=== PATIENT | female | born 1945 ===

== ENCOUNTER 2018-01-09 12:27 | Outpatient (REF) | payer MEDICARE, SELFPAY ==
[2018-01-09 21:10] LABS: HCT 41.8 % (36.0-46.0); HGB 14.5 g/dL (12.0-15.5); Mean Corp. HGB Concentration 34.7 g/dL (32.0-36.0); Mean Corpuscular Hemoglobin 32.8 pg (27.0-33.0); Mean Corpuscular Volume 94.6 fL (80-95); Mean Platelet Volume 11.9 fL (8.0-11.0); Platelet Count 230 x1000/uL (130-400); RBC 4.42 m/cumm (4.00-5.20); RBC Distribution Width 12.5 % (11.7-14.6)
[2018-01-09 21:39] LABS: ALT 21 U/L (12-78); AST 14 U/L (15-37); Albumin 3.9 g/dL (3.4-5.0); Alkaline Phosphatase 87 U/L (46-116); Anion Gap 11.3 mmol/L (3-11); BUN 14 mg/dL (7-18); Bilirubin, Total 0.5 mg/dL (0.2-1.0); CO2 26.7 mmol/L (21.0-32.0); CREATININE 0.86 mg/dL (0.55-1.02); Chloride 103 mmol/L (98-107); Glucose 86 mg/dL (70-100); Magnesium 2.3 mg/dL (1.8-2.4); Potassium 4.1 mmol/L (3.5-5.1); Sodium 141 mmol/L (136-145); TSH (W/Ref FT4) 1.91 uIU/mL (0.358-3.74); Total Protein 7.2 g/dL (6.4-8.2)
[2018-01-11 10:15] LABS: Hepatitis C Ab w Rflx HCV PCR Negative (NEGAT)
[2018-01-11 10:22] LABS: HBs Antibody, Quant <3.1 mIU/mL; Hepatitis B Surface Ab Negative; Hepatitis B Surface Ag Negative (NEGAT)
== END 2018-01-09 12:28 ==
LOC: NCHCN 12:27
PROVIDERS: PCP Family Medicine; Visit Provider Family Medicine
DX: R41.3 Other amnesia (principal); K76.0 Fatty (change of) liver, not elsewhere classified; R00.2 Palpitations; Z11.59 Encounter for screening for other viral diseases
CPT/HCPCS: 80053; 85027; 86706; 86803; 87340; 83735; 84443

== ENCOUNTER 2018-04-09 17:48 | Outpatient (REF) | payer MEDICARE, SELFPAY ==
[2018-04-09 21:29] LABS: ESR 15 MM/HR (0-30)
== END 2018-04-09 18:08 ==
LOC: NCHCN 17:48
PROVIDERS: PCP Family Medicine; Visit Provider Family Medicine
DX: R51 Headache (principal)
CPT/HCPCS: 85652

== ENCOUNTER 2020-04-22 09:55 | Outpatient (REF) | payer MEDICARE, SELFPAY ==
[2020-04-22 21:31] LABS: Abs Immature Grans 0.02 10^3/uL (0.0-0.06); Absolute Basophil Count 0.03 10^3/uL (0.0-0.2); Absolute Eosinophil Count 0.19 10^3/uL (0.0-0.7); Absolute Lymphocyte Count 1.97 10^3/uL (1.2-3.4); Absolute Monocyte Count 0.67 10^3/uL (0.1-0.8); Basophils % 0.5; Eosinophils % 3.1; HCT 40.3 % (36.0-46.0); HGB 13.7 g/dL (11.2-15.7); Immature Grans % 0.3; Lymphocytes % 32.4; MCV 97.1 fL (80-95); Neutrophils % 52.7; Nucleated RBC 0 %; Platelet Count 227 10^3/uL (130-400); RBC 4.15 10^6/uL (3.93-5.22); RDW 11.8 % (11.7-14.6); RDW-SD 41.9 fL; WBC 6.08 10^3/uL (4.4-10.8)
[2020-04-22 21:53] LABS: ALT 21 U/L (14-59); AST 18 U/L (15-37); Albumin 3.7 g/dL (3.4-5.0); Alkaline Phosphatase 75 U/L (46-116); Anion Gap 6.9 mmol/L (3-11); BUN 13 mg/dL (7-18); Bilirubin, Total 0.5 mg/dL (0.2-1.0); CO2 29.1 mmol/L (21.0-32.0); CREATININE 0.77 mg/dL (0.55-1.02); Calcium 8.9 mg/dL (8.5-10.1); Chloride 101 mmol/L (98-107); Glucose 89 mg/dL (74-106); Lipase 152 U/L (73-393); Potassium 4.1 mmol/L (3.5-5.1); Sodium 137 mmol/L (136-145); TSH (W/Ref FT4) 2.08 uIU/mL (0.36-3.74)
[2020-05-11 15:21] LABS: Folate >20.0 mcg/L (>=4.0); Vitamin B12 459 ng/L (180-914)
== END 2020-04-22 10:15 ==
LOC: NCHCN 09:55
PROVIDERS: PCP Family Medicine; Visit Provider Family Medicine
DX: R10.11 Right upper quadrant pain (principal); M54.5 Low back pain; R53.83 Other fatigue; D75.89 Other specified diseases of blood and blood-forming organs
CPT/HCPCS: 80053; 83690; 82607; 82746; 84443; 85025

== ENCOUNTER 2022-09-22 21:43 | Outpatient (REF) | payer MEDICARE, SELFPAY ==
[2022-09-22 21:54] LABS: Abs Immature Grans 0.03 10^3/uL (0.0-0.06); Absolute Basophil Count 0.03 10^3/uL (0.0-0.2); Absolute Eosinophil Count 0.14 10^3/uL (0.0-0.7); Absolute Lymphocyte Count 2.22 10^3/uL (1.2-3.4); Absolute Monocyte Count 0.73 10^3/uL (0.1-0.8); Basophils % 0.4; Eosinophils % 1.9; HCT 39.1 % (36.0-46.0); HGB 13.7 g/dL (11.2-15.7); Immature Grans % 0.4; Lymphocytes % 30.6; MCH 33.3 pg (27.0-33.0); MCV 95 fL (80-95); MPV 12.7 fL (8.0-11.0); Monocytes % 10.1; Neutrophils % 56.6; Platelet Count 230 10^3/uL (130-400); RBC 4.12 10^6/uL (3.93-5.22); RDW 11.8 % (11.7-14.6); RDW-SD 41.1 fL; WBC 7.25 10^3/uL (4.4-10.8)
[2022-09-22 22:05] LABS: Bilirubin Negative (Negative); Blood Negative (Negative); Clarity Clear (Clear); Glucose Negative (Negative); Ketones Negative (Negative); Leukocyte Esterase Small (Negative); Nitrite Negative (Negative); Specific Gravity 1.025 (1.005-1.025); Urobilinogen 0.2 mg/dL (Up to 0.2); pH 6.5 (5-8)
[2022-09-22 22:11] LABS: Bacteria Rare HPF (Negative); C & S Indicated? Yes; Casts Negative LPF (Negative); Crystals Negative HPF (Negative); Epithelial Cells Rare HPF (Negative); Mucus Negative (Negative); RBC Negative HPF (0-2)
[2022-09-22 22:12] LABS: ALT 22 U/L (14-59); AST 18 U/L (15-37); Albumin 3.7 g/dL (3.4-5.0); Alkaline Phosphatase 89 U/L (46-116); Anion Gap 6.8 mmol/L (3-11); BUN 22 mg/dL (7-18); Bilirubin, Total 0.4 mg/dL (0.2-1.0); CO2 27.2 mmol/L (21.0-32.0); CREATININE 1.1 mg/dL (0.55-1.02); Calcium 8.7 mg/dL (8.5-10.1); Chloride 102 mmol/L (98-107); Estimated GFR 52.08 (mL/min/1.73m2); Glucose 107 mg/dL (74-106); Potassium 4.3 mmol/L (3.5-5.1); Sodium 136 mmol/L (136-145); Total Protein 7.7 g/dL (6.4-8.2)
== END 2022-09-22 21:44 | disposition home or self-care (01) ==
LOC: NCHCN 21:43
PROVIDERS: PCP Family Medicine; Visit Provider Internal Medicine
DX: R53.83 Other fatigue (principal); R42 Dizziness and giddiness; R82.998 Other abnormal findings in urine
CPT/HCPCS: 80053; 81003; 81015; 84443; 85025; 87086

== ENCOUNTER 2023-02-28 13:47 | Outpatient (REF) | payer MEDICARE, SELFPAY ==
[2023-02-28 17:23] LABS: Anion Gap 5.1 mmol/L (3-11); BUN 15 mg/dL (7-18); CO2 30.9 mmol/L (21.0-32.0); Calcium 9.9 mg/dL (8.5-10.1); Chloride 101 mmol/L (98-107); Estimated GFR 58.02 (mL/min/1.73m2); Glucose 113 mg/dL (74-106); Potassium 4.3 mmol/L (3.5-5.1); Sodium 137 mmol/L (136-145)
[2023-03-01 13:05] LABS: ALT 19 U/L (14-59); AST 17 U/L (15-37); Albumin 3.7 g/dL (3.4-5.0); Alkaline Phosphatase 95 U/L (46-116); Total Protein 7.4 g/dL (6.4-8.2)
[2023-03-01 13:35] LABS: Vitamin D 25 Total 57.3 ng/mL (30-100)
== END 2023-02-28 13:48 | disposition home or self-care (01) ==
LOC: NCHCN 13:47
PROVIDERS: PCP Family Medicine; Visit Provider Family Medicine
DX: N18.32 Chronic kidney disease, stage 3b (principal); R94.4 Abnormal results of kidney function studies; C20 Malignant neoplasm of rectum; R73.09 Other abnormal glucose
CPT/HCPCS: 80048; 82306; 82040; 84075; 84155; 84450; 84460

== ENCOUNTER 2023-09-13 15:25 | Outpatient (REF) | payer MEDICARE, SELFPAY ==
[2023-09-13 14:44] LABS: Abs Immature Grans 0.01 10^3/uL (0.0-0.06); Absolute Basophil Count 0.04 10^3/uL (0.0-0.2); Absolute Eosinophil Count 0.13 10^3/uL (0.0-0.7); Absolute Lymphocyte Count 1.59 10^3/uL (1.2-3.4); Absolute Monocyte Count 0.57 10^3/uL (0.1-0.8); Absolute Neutrophil Count 2.95 10^3/uL (1.2-6.7); Basophils % 0.8; Eosinophils % 2.5; HCT 38.2 % (36.0-46.0); HGB 13.5 g/dL (11.2-15.7); Immature Grans % 0.2; Lymphocytes % 30.1; MCH 33.8 pg (27.0-33.0); MCHC 35.3 % (32.0-36.0); MCV 96 fL (80-95); MPV 11.5 fL (8.0-11.0); Monocytes % 10.8; Neutrophils % 55.6; Platelet Count 236 10^3/uL (130-400); RDW 11.8 % (11.7-14.6); RDW-SD 40.9 fL; WBC 5.29 10^3/uL (4.4-10.8)
[2023-09-13 15:03] LABS: ALT 24 U/L (14-59); AST 19 U/L (15-37); Albumin 3.6 g/dL (3.4-5.0); Alkaline Phosphatase 73 U/L (46-116); Anion Gap 10.3 mmol/L (3-11); BUN 14 mg/dL (7-18); Bilirubin, Total 0.4 mg/dL (0.2-1.0); CO2 26.7 mmol/L (21.0-32.0); CREATININE 0.7 mg/dL (0.55-1.02); Calcium 9.2 mg/dL (8.5-10.1); Chloride 104 mmol/L (98-107); Estimated GFR 89.02 (mL/min/1.73m2); Glucose 101 mg/dL (74-106); Potassium 4.3 mmol/L (3.5-5.1); Sodium 141 mmol/L (136-145); Total Protein 7.1 g/dL (6.4-8.2)
== END 2023-09-13 15:26 | disposition home or self-care (01) ==
LOC: NCHCN 15:25
PROVIDERS: PCP Family Medicine; Visit Provider Family Medicine
DX: C20 Malignant neoplasm of rectum (principal)
CPT/HCPCS: 80053; 85025

== ENCOUNTER 2023-10-25 12:52 | Outpatient (REF) | payer MEDICARE, SELFPAY ==
[2023-10-25 15:30] LABS: BUN 24 mg/dL (7-18); CREATININE 0.8 mg/dL (0.55-1.02); Estimated GFR 75.84 (mL/min/1.73m2)
== END 2023-10-25 12:53 | disposition home or self-care (01) ==
LOC: NCHCN 12:52
PROVIDERS: PCP Family Medicine; Visit Provider Family Medicine
DX: C20 Malignant neoplasm of rectum (principal)
CPT/HCPCS: 84520; 82565

== ENCOUNTER 2024-07-09 16:46 | Outpatient (REF) | payer MEDICARE, SELFPAY ==
[2024-07-09 21:52] LABS: ALT 16 U/L (14-59); AST 19 U/L (15-37); Albumin 3.6 g/dL (3.4-5.0); Alkaline Phosphatase 91 U/L (46-116); BUN 11 mg/dL (7-18); Bilirubin, Total 0.47 mg/dL (0.2-1.0); CREATININE 0.9 mg/dL (0.55-1.02); Calcium 9.5 mg/dL (8.5-10.1); Chloride 104 mmol/L (98-107); Estimated GFR 65.44 (mL/min/1.73m2); Glucose 107 mg/dL (74-106); Potassium 3.9 mmol/L (3.5-5.1); Sodium 141 mmol/L (136-145); Total Protein 7.7 g/dL (6.4-8.2)
[2024-07-09 21:56] LABS: Abs Immature Grans 0.01 10^3/uL (0.0-0.06); Absolute Basophil Count 0.05 10^3/uL (0.0-0.2); Absolute Eosinophil Count 0.17 10^3/uL (0.0-0.7); Absolute Lymphocyte Count 1.83 10^3/uL (1.2-3.4); Absolute Monocyte Count 0.54 10^3/uL (0.1-0.8); Absolute Neutrophil Count 4.31 10^3/uL (1.2-6.7); Basophils % 0.7 %; Eosinophils % 2.5 %; HGB 12.9 g/dL (11.2-15.7); Immature Grans % 0.1 %; Lymphocytes % 26.5 %; MCH 31.9 pg (27.0-33.0); MCHC 33.9 % (32.0-36.0); MCV 94 fL (80-95); MPV 12.5 fL (8.0-11.0); Monocytes % 7.8 %; Neutrophils % 62.4 %; Platelet Count 241 10^3/uL (130-400); RBC 4.04 10^6/uL (3.93-5.22); RDW 12.4 % (11.7-14.6); RDW-SD 42.9 fL; WBC 6.91 10^3/uL (4.4-10.8)
== END 2024-07-09 16:47 | disposition home or self-care (01) ==
LOC: NCHCN 16:46
PROVIDERS: PCP Family Medicine; Visit Provider Family Medicine
DX: Z76.89 Persons encountering health services in other specified circumstances (principal); C18.9 Malignant neoplasm of colon, unspecified
CPT/HCPCS: 80053; 85025

== ENCOUNTER 2024-12-25 21:26 | Outpatient (REF) | payer MEDICARE, SELFPAY ==
[2024-12-25 17:16] LABS: HCT 30.4 % (36.0-46.0); HGB 10.2 g/dL (11.2-15.7); MCH 31.5 pg (27.0-33.0); MCHC 33.6 % (32.0-36.0); MCV 94 fL (80-95); MPV 12.4 fL (8.0-11.0); Platelet Count 249 10^3/uL (130-400); RBC 3.24 10^6/uL (3.93-5.22); RDW 12.7 % (11.7-14.6); RDW-SD 43.7 fL; WBC 5.81 10^3/uL (4.4-10.8)
[2024-12-25 17:41] LABS: Iron 38 ug/dL (50-170)
[2024-12-25 17:42] LABS: ALT 18 U/L (14-59); AST 17 U/L (15-37); Albumin 3.0 g/dL (3.4-5.0); Alkaline Phosphatase 80 U/L (46-116); Anion Gap 5.5 mmol/L (3-11); BUN 12 mg/dL (7-18); Bilirubin, Total 0.3 mg/dL (0.2-1.0); CO2 28.5 mmol/L (21.0-32.0); Calcium 8.6 mg/dL (8.5-10.1); Chloride 103 mmol/L (98-107); Estimated GFR 91.25 (mL/min/1.73m2); Ferritin 50 ng/mL (8-252); Glucose 95 mg/dL (74-106); Potassium 4.2 mmol/L (3.5-5.1); Sodium 137 mmol/L (136-145); Total Protein 6.6 g/dL (6.4-8.2)
== END 2024-12-25 21:27 | disposition home or self-care (01) ==
LOC: NCHCN 21:26
PROVIDERS: PCP Family Medicine; Visit Provider Physician Assistant
DX: C20 Malignant neoplasm of rectum (principal)
CPT/HCPCS: 80053; 85027; 82728; 83540

== ENCOUNTER 2025-06-03 11:12 | Outpatient (REF) | payer MEDICARE, SELFPAY ==
[2025-06-03 16:02] LABS: HCT 31.1 % (36.0-46.0); HGB 11.4 g/dL (11.2-15.7); MCH 38.4 pg (27.0-33.0); MCHC 36.7 % (32.0-36.0); MCV 105 fL (80-95); MPV 11.8 fL (8.0-11.0); Platelet Count 371 10^3/uL (130-400); RBC 2.97 10^6/uL (3.93-5.22); RDW 11.9 % (11.7-14.6); RDW-SD 45.3 fL; WBC 7.42 10^3/uL (4.4-10.8)
[2025-06-03 16:21] LABS: ALT 23 U/L (10-49); AST 44 U/L (<34); Albumin 4.1 g/dL (3.2-5.0); Alkaline Phosphatase 89 U/L (46-116); Anion Gap 7.2 mmol/L (3-11); BUN 13 mg/dL (9-23); Bilirubin, Total 1.0 mg/dL (0.2-1.2); CO2 25.8 mmol/L (20.0-31.0); Calcium 8.9 mg/dL (8.3-10.6); Chloride 104 mmol/L (98-107); Glucose 87 mg/dL (74-106); Potassium 3.4 mmol/L (3.5-5.1); Sodium 137 mmol/L (136-145); Total Protein 7.2 g/dL (5.7-8.2)
[2025-06-03 16:22] LABS: Magnesium 1.8 mg/dL (1.6-2.6)
[2025-06-04 09:28] LABS: CEA 52.8 ng/mL (See Note)
[2025-06-08 16:58] LABS: 1,25-Dihydroxyvitamin D 17 pg/mL (18-78)
== END 2025-06-03 11:13 | disposition home or self-care (01) ==
LOC: NCHCN 11:12
PROVIDERS: PCP Family Medicine; Visit Provider Family Medicine
DX: C20 Malignant neoplasm of rectum (principal); N18.32 Chronic kidney disease, stage 3b
CPT/HCPCS: 80053; 85027; 82378; 82652; 83735